=== PATIENT | male | born 1945 | race Caucasian/White ===

== ENCOUNTER 2019-11-05 12:31 | Inpatient (IN) | payer MEDICARE, BC ==
[2019-11-05] MEDS ORDERED: Enoxaparin 40 MG/0.4 ML Syringe SUBCUT SCH (13:14)
[2019-11-05] MEDS ORDERED: Acetaminophen/oxyCODONE 325-5 MG Tab PO PRN (13:14)
[2019-11-05] MEDS ORDERED: Acetaminophen 325 MG Tab PO PRN (13:14)
[2019-11-05] MEDS ORDERED: Warfarin 5 MG Tab PO SCH (14:00)
[2019-11-05 14:16] LABS: ANION GAP 15.4
[2019-11-05] MEDS ORDERED: Warfarin 5 MG Tab PO ONE (15:00)
[2019-11-05] MEDS: Doxycycline 100 MG Cap PO SCH ×2 (15:28→20:52)
[2019-11-05] MEDS ORDERED: Enoxaparin 100 MG/1 ML Syringe SUBCUT ONE (15:45)
[2019-11-05] MEDS: Insulin Lispro 100 Units/ML 3 ML Vial SUBCUT SCH (17:16)
[2019-11-05] MEDS: Insulin Glarg,Human.Rec.Analog 100 Unit/ML SUBCUT SCH (20:49)
[2019-11-05] MEDS: Doxazosin 2 MG Tab PO SCH (20:50)
[2019-11-05] MEDS: Docusate Sodium 100 MG Cap PO PRN (20:51)
[2019-11-05] MEDS: Metoprolol Tartrate 25 MG Tab PO SCH (20:52)
[2019-11-05] MEDS: atorvaSTATin 10 MG Tab PO SCH (20:52)
[2019-11-05] MEDS ORDERED: Non-Formulary Medication 1 Each (Lovastatin [Lovastatin] 40 MG) PO SCH (21:00)
[2019-11-06] MEDS: Omeprazole 20 MG Cap.CR PO SCH (05:42)
[2019-11-06] MEDS: Enoxaparin 100 MG/1 ML Syringe SUBCUT SCH ×2 (05:43→17:29)
--- NOTE | 2019-11-06 08:55 | PN ---
DATE: 11/06/2019 SUBJECTIVE: The patient had a good night sleep. The right leg swelling is slowly improving and the patient denies any chest pain, shortness of breath, abdominal pain, or any bleeding tendencies. LABORATORY DATA: Lab workup this morning: CBC; WBC is 6.2, hemoglobin is 11, hematocrit is 34.2, platelets 216. ProTime is 10.2, INR is 1. Chem-6 remarkable for BUN of 33, creatinine of 1.7. The rest of the panel unremarkable. OBJECTIVE: Vital Signs: Blood pressure is 149/73, pulse 67, respirations of 16, temperature of 100. Heart: Regular rate and rhythm. Normal S1 and S2. No gallops. No rubs. Lungs: Clear. No crackles. No wheezing. Abdomen: Moderately obese, soft, nontender. Extremities: Remarkable for some swelling on the right lower leg (improving), and there is the wound on the medial aspect of the right lower leg. PLAN: We will continue with his current regimen and continue with Lovenox and Coumadin and doxycycline. [facility] /[id number]
[2019-11-06] MEDS: Diltiazem 120 MG Cap.CD PO SCH (08:58)
[2019-11-06] MEDS: Metoprolol Tartrate 25 MG Tab PO SCH ×2 (08:59→21:05)
[2019-11-06] MEDS: Multivitamins,Therapeutic Tab PO SCH (08:59)
[2019-11-06] MEDS: Diltiazem 180 MG Cap.CD PO SCH (08:59)
[2019-11-06] MEDS: Aspirin 81 MG Tab.Chew PO SCH (09:00)
[2019-11-06] MEDS: Lisinopril 5 MG Tab PO SCH (09:00)
[2019-11-06] MEDS: Bumetanide 1 MG Tab PO SCH (09:00)
[2019-11-06] MEDS: Doxycycline 100 MG Cap PO SCH ×2 (09:00→21:04)
[2019-11-06] MEDS ORDERED: methylPREDNISolone Sodium Succinate 40 MG/1 ML SDV IVPUSH SCH (09:00)
[2019-11-06] MEDS: Insulin Lispro 100 Units/ML 3 ML Vial SUBCUT SCH ×3 (09:24→17:25)
[2019-11-06] MEDS ORDERED: Warfarin 5 MG Tab PO ONE (14:00)
[2019-11-06] MEDS: Insulin Glarg,Human.Rec.Analog 100 Unit/ML SUBCUT SCH (21:02)
[2019-11-06] MEDS: atorvaSTATin 10 MG Tab PO SCH (21:04)
[2019-11-06] MEDS: Doxazosin 2 MG Tab PO SCH (21:04)
[2019-11-06] MEDS: Docusate Sodium 100 MG Cap PO PRN (21:05)
[2019-11-07] MEDS: Enoxaparin 100 MG/1 ML Syringe SUBCUT SCH ×2 (05:43→17:51)
[2019-11-07] MEDS: Omeprazole 20 MG Cap.CR PO SCH (05:43)
[2019-11-07] MEDS: Aspirin 81 MG Tab.Chew PO SCH (08:21)
[2019-11-07] MEDS: Diltiazem 120 MG Cap.CD PO SCH (08:22)
[2019-11-07] MEDS: Bumetanide 1 MG Tab PO SCH (08:22)
[2019-11-07] MEDS: Doxycycline 100 MG Cap PO SCH ×2 (08:24→21:55)
[2019-11-07] MEDS: Multivitamins,Therapeutic Tab PO SCH (08:24)
[2019-11-07] MEDS: Diltiazem 180 MG Cap.CD PO SCH (08:24)
[2019-11-07] MEDS: Lisinopril 5 MG Tab PO SCH (08:25)
[2019-11-07] MEDS: Metoprolol Tartrate 25 MG Tab PO SCH ×2 (08:26→22:02)
[2019-11-07] MEDS: Insulin Lispro 100 Units/ML 3 ML Vial SUBCUT SCH ×3 (08:28→17:50)
--- NOTE | 2019-11-07 10:53 | HP ---
CHIEF COMPLAINT: Right leg swelling. HISTORY OF PRESENT ILLNESS: The patient is a 74-year-old gentleman who was admitted from [facility] because of right leg swelling that started actually when he woke up this morning, and he was seen by Dr. Benavides. He had an ultrasound of the right leg, which showed obstructive thrombus on the right common femoral vein and the popliteal vein, and he was then admitted for further evaluation and management and anticoagulation. The patient denies any chest pain, shortness of breath, fever, chills, abdominal pain, melena, hematochezia, or any bleeding tendencies. He mentioned he was just recently seen at the [facility] in [facility] yesterday and had a checkup with his operative site and was also seen by Cardiology. PAST MEDICAL HISTORY: Remarkable for coronary artery bypass graft about 5 weeks ago. He has also type 2 diabetes mellitus, history of gastroesophageal reflux, dyslipidemia, chronic kidney disease, BPH, and hypertension. SOCIAL HISTORY: The patient is a nonsmoker, very occasional beer drinker. FAMILY HISTORY: Noncontributory. REVIEW OF SYSTEMS: As in HPI. The rest of the review of systems is negative. CURRENT MEDICATIONS: Lipitor, lisinopril, Bumex, metoprolol, omeprazole, diltiazem, doxazosin, NovoLog, Levemir, metformin, aspirin, and doxycycline that was just started today. ALLERGIES: No known drug allergies. PHYSICAL EXAMINATION: General: The patient is very pleasant. He is alert and oriented, ambulatory, not in any acute distress. Vital Signs: Blood pressure is 136/70, pulse of 68, respirations 16, weight is 203 pounds, temperature of 97.9. SHEENT: Normocephalic. There are pink palpebral conjunctivae. Sclerae anicteric. No JVD. No lymphadenopathy. Heart: Regular rate and rhythm. Normal S1 and S2. No gallops. No rubs. Lungs: Equal bilaterally. No crackles. No wheezing. Abdomen: Moderately obese, soft, nontender. Bowel sounds positive. Extremities: Remarkable for the swelling on the right leg and there is about 1 inch open wound on the medial aspect of the right lower leg (graft harvest site). IMAGING: Ultrasound of the right leg showed an obstructive thrombus of the right common femoral vein and popliteal vein. IMPRESSION: 1. Acute deep venous thrombosis of the right leg. 2. Wound on the graft harvest site on the right lower leg. 3. History of coronary artery bypass graft. 4. Coronary artery disease. 5. Type 2 diabetes mellitus. 6. Hypertension. 7. BPH. 8. Chronic kidney disease. TREATMENT PLAN: The patient is going to be admitted to General Medicine for acute care. He will be started on Lovenox and Coumadin at the same time, and we will also continue with his doxycycline for the wound on the harvest site of the graft, and we will continue with the rest of his home medication and the rest of the management as necessary and the patient is a full code. [facility] /[id number]
--- NOTE | 2019-11-07 11:25 | PCM.PN ---
- General Info Date of Service: 11/07/19 Admission Dx/Problem (Free Text): Admitted with: DVT of the Right lower extremity Subjective Update: Pt was seen in room doing well, feels better, no siginificant leg pain or swelling. Appetite is good but had no BM for the last 3 days Functional Status: Reports: Pain Controlled, Tolerating Diet, Ambulating, Urinating - Review of Systems General: Reports: Appetite (acceptable). Denies: Fever, Chills HEENT: Denies: Sinus Congestion, Sore Throat, Rhinitis, Visual Changes Pulmonary: Denies: Shortness of Breath, Cough, Sputum, Wheezing Cardiovascular: Denies: Chest Pain, Dyspnea on Exertion, Lightheadedness Gastrointestinal: Reports: Constipation. Denies: Abdominal Pain, Difficulty Swallowing, Nausea, Vomiting Genitourinary: Denies: Dysuria, Burning, Urgency, Flank Pain Musculoskeletal: Reports: Leg Pain. Denies: Shoulder Pain, Joint Swelling Skin: Denies: Cyanosis, Jaundice, Bruising, Pruritis, Rash Neurological: Denies: Confusion, Dizziness, Headache, Numbness, Paresthesia Psychiatric: Denies: Confusion, Anxiety - Patient Data Vitals - Most Recent: Last Vital Signs Temp 36.8 C 11/07/19 07:53 Pulse 62 11/07/19 08:26 Resp 20 11/07/19 07:53 BP 131/69 11/07/19 08:26 Pulse Ox 98 11/07/19 07:53 Weight - Most Recent: 91.172 kg I&O - Last 24 Hours: Intake & Output 11/06/19 11/07/19 11/07/19 22:59 06:59 14:59 Intake Total 300 510 360 Balance 300 510 360 Lab Results Last 24 Hours: Laboratory Results - last 24 hr 11/06/19 11/06/19 11/06/19 Range/Units 11:55 16:36 20:58 PT (9.0-12.0) SEC INR (0.9-1.2) POC Glucose 185 H 162 H 144 H (83-110) mg/dl 11/07/19 11/07/19 11/07/19 Range/Units 06:00 07:44 11:07 PT 10.4 (9.0-12.0) SEC INR 1.0 (0.9-1.2) POC Glucose 76 L 262 H (83-110) mg/dl Med Orders - Current: Current Medications Acetaminophen (Tylenol) 650 mg PO Q4H PRN PRN Reason: Pain (Mild 1-3)/fever Aspirin (Aspirin) 81 mg PO WITHBREAKFAST [facility] Last Admin: 11/07/19 08:21 Dose: 81 mg Atorvastatin Calcium (Lipitor) 10 mg PO BEDTIME [facility] Last Admin: 11/06/19 21:04 Dose: 10 mg Bumetanide (Bumex) 1 mg PO DAILY [facility] Last Admin: 11/07/19 08:22 Dose: 1 mg Diltiazem HCl (Cardizem Cd) 120 mg PO DAILY [facility] Last Admin: 11/07/19 08:22 Dose: 120 mg Diltiazem HCl (Cardizem Cd) 180 mg PO DAILY [facility] Last Admin: 11/07/19 08:24 Dose: 180 mg Docusate Sodium (Colace) 100 mg PO BID PRN PRN Reason: Constipation Last Admin: 11/06/19 21:05 Dose: 100 mg Doxazosin Mesylate (Cardura) 2 mg PO BEDTIME [facility] Last Admin: 11/06/19 21:04 Dose: 2 mg Doxycycline Hyclate (Vibramycin) 100 mg PO BID [facility] Last Admin: 11/07/19 08:24 Dose: 100 mg Enoxaparin Sodium (Lovenox) 90 mg SUBCUT Q12H [facility] Last Admin: 11/07/19 05:43 Dose: 90 mg Insulin Glargine (Lantus) 30 unit SUBCUT BEDTIME [facility] Last Admin: 11/06/19 21:02 Dose: 30 units Insulin Human Lispro (Humalog) 15 unit SUBCUT BIDMEALS [facility] Lisinopril (Prinivil) 2.5 mg PO DAILY [facility] Last Admin: 11/07/19 08:25 Dose: 2.5 mg Metoprolol Tartrate (Lopressor) 12.5 mg PO BID [facility] Last Admin: 11/07/19 08:26 Dose: 12.5 mg Multivitamins (Thera) 1 each PO DAILY [facility] Last Admin: 11/07/19 08:24 Dose: 1 each Omeprazole (Omeprazole) 20 mg PO ACBREAKFAST [facility] Last Admin: 11/07/19 05:43 Dose: 20 mg Oxycodone/Acetaminophen (Percocet 325-5 Mg) 1 tab PO Q4H PRN PRN Reason: Pain (moderate 4-6) Sodium Chloride (Saline Flush) 10 ml FLUSH ASDIRECTED PRN PRN Reason: Keep Vein Open Warfarin Sodium (Pharmacy To Dose - Warfarin) 1 dose PO ASDIRECTED TRICE Warfarin Sodium (Coumadin) 7.5 mg PO ONETIME ONE Stop: 11/07/19 14:01 Discontinued Medications Enoxaparin Sodium (Lovenox) 100 mg SUBCUT DAILY [facility] Last Admin: 11/05/19 15:29 Dose: Not Given Enoxaparin Sodium (Lovenox) 90 mg SUBCUT ONETIME ONE Stop: 11/05/19 15:46 Last Admin: 11/05/19 16:01 Dose: 90 mg Insulin Human Lispro (Humalog) 15 unit SUBCUT TIDMEALS [facility] Last Admin: 11/07/19 08:28 Dose: Not Given Non-Formulary Medication (Lovastatin [Lovastatin]) 40 mg PO BEDTIME [facility] Warfarin Sodium (Coumadin) 5 mg PO DAILY@1400 [facility] Last Admin: 11/05/19 15:29 Dose: Not Given Warfarin Sodium (Coumadin) 5 mg PO ONETIME ONE Stop: 11/05/19 15:01 Last Admin: 11/05/19 15:28 Dose: 5 mg Warfarin Sodium (Coumadin) 5 mg PO ONETIME ONE Stop: 11/06/19 14:01 Last Admin: 11/06/19 13:41 Dose: 5 mg - Exam Quality Assessment: DVT Prophylaxis. No: Supplemental Oxygen, Urine Catheter General: Alert, Oriented, Cooperative, No Acute Distress HEENT: Pupils Equal, EOMI, Mucous Membr. Moist/[place] Neck: No: No JVD, No Thyromegaly, Lymphadenopathy Lungs: Clear to Auscultation, Normal Respiratory Effort. No: Wheezing Cardiovascular: Regular Rate, Regular Rhythm, No Murmurs GI/Abdominal Exam: Normal Bowel Sounds, Soft, Non-Tender. No: Guarding, Rigid, Rebound Back Exam: Normal Inspection, Full Range of Motion Extremities: Normal Inspection, No Pedal Edema Skin: Warm, Dry, Intact Neurological: No New Focal Deficit Psy/Mental Status: Alert, Normal Affect Sepsis Event Note - Evaluation Sepsis Screening Result: No Definite Risk - Focused Exam Vital Signs: Vital Signs Temp Pulse Pulse Resp BP BP Pulse Ox 11/07/19 08:26 62 131/69 11/07/19 08:25 131/69 11/07/19 08:22 62 131/69 11/07/19 07:53 36.8 C 62 20 131/69 98 Date Exam was Performed: 11/07/19 Time Exam was Performed: 11:20 - Problem List & Annotations (1) DVT (deep venous thrombosis) SNOMED Code(s): 483636756 Code(s): I82.409 - ACUTE EMBOLISM AND THOMBOS UNSP DEEP VN UNSP LOWER EXTREMITY Status: Acute Current Visit: Yes - Problem List Review Problem List Initiated/Reviewed/Updated: Yes - My Orders Last 24 Hours: My Active Orders 11/07/19 18:00 Insulin Lispro [HumaLOG] 15 unit SUBCUT BIDMEALS - Plan Plan:: This is a 74 y/O pleasant Male with past medical history of CAD S/P CABG about 5 weeks ago, Diabetes II, Hypertension GERD Dyslipidemia, CKD was admitted from [facility] [place] with Rt Leg swelling, work up showed Rt LE DVT 1. Right Leg DVT: He is on Lovenox and Coumadin -Pharmacy is dosing the Coumadin dose and it is not yet therapeutic -Will D/C once he is on Therapeutic target 2. Diabetes II ( Insulin Dependent): Continue Lantus and sliding scale coverage. He is also on regular insulin before meals. His blood sugaer is acceptable 3. Hypertension: BP is controlled, will continue Diltiazem at 300 mg daily and Metoprolol at 12.5 mg bID and Lisinopril at 2.5 mg daily 4. Rt LE wound ( graft harvest site) : He is on Doxycycline 5. GERD: he is on Protonix 6. Code Status: Full Code
[2019-11-07] MEDS ORDERED: Warfarin 2.5 MG Tab PO ONE (14:00)
[2019-11-07] MEDS: Insulin Glarg,Human.Rec.Analog 100 Unit/ML SUBCUT SCH (21:44)
[2019-11-07] MEDS: Sodium Chloride 0.9% 10 ML Syringe FLUSH PRN (21:50)
[2019-11-07] MEDS: Doxazosin 2 MG Tab PO SCH (21:55)
[2019-11-07] MEDS: atorvaSTATin 10 MG Tab PO SCH (21:59)
[2019-11-07] MEDS: Docusate Sodium 100 MG Cap PO PRN (22:11)
[2019-11-08] MEDS: Omeprazole 20 MG Cap.CR PO SCH (06:33)
[2019-11-08] MEDS: Enoxaparin 100 MG/1 ML Syringe SUBCUT SCH ×2 (06:34→17:35)
[2019-11-08] MEDS: Bumetanide 1 MG Tab PO SCH (08:29)
[2019-11-08] MEDS: Aspirin 81 MG Tab.Chew PO SCH (08:29)
[2019-11-08] MEDS: Diltiazem 180 MG Cap.CD PO SCH (08:30)
[2019-11-08] MEDS: Diltiazem 120 MG Cap.CD PO SCH (08:30)
[2019-11-08] MEDS: Multivitamins,Therapeutic Tab PO SCH (08:31)
[2019-11-08] MEDS: Doxycycline 100 MG Cap PO SCH ×2 (08:31→20:23)
[2019-11-08] MEDS: Metoprolol Tartrate 25 MG Tab PO SCH ×2 (08:32→20:22)
[2019-11-08] MEDS: Lisinopril 5 MG Tab PO SCH (08:33)
[2019-11-08] MEDS: Insulin Lispro 100 Units/ML 3 ML Vial SUBCUT SCH ×2 (08:47→17:35)
--- NOTE | 2019-11-08 11:32 | PCM.PN ---
- General Info Date of Service: 11/08/19 Admission Dx/Problem (Free Text): Admitted with: DVT of the Right lower extremity Subjective Update: Pt was seen in room doing well, feels better, no siginificant leg pain or swelling. Appetite is good Functional Status: Reports: Pain Controlled, Tolerating Diet, Ambulating, Urinating - Review of Systems General: Reports: Appetite (good). Denies: Fever, Weakness, Chills HEENT: Denies: Headaches, Sinus Congestion, Sore Throat, Visual Changes Pulmonary: Denies: Shortness of Breath, Cough, Sputum, Wheezing Cardiovascular: Denies: Chest Pain, Dyspnea on Exertion, Edema Gastrointestinal: Denies: Abdominal Pain, Diarrhea, Difficulty Swallowing, Nausea, Vomiting Genitourinary: Denies: Dysuria, Frequency, Burning, Urgency, Flank Pain Musculoskeletal: Denies: Neck Pain, Foot Pain, Joint Pain Skin: Denies: Cyanosis, Jaundice, Bruising, Pruritis, Rash Neurological: Denies: Confusion, Tingling, Tremors Psychiatric: Denies: Confusion, Anxiety - Patient Data Vitals - Most Recent: Last Vital Signs Temp 37.2 C 11/08/19 08:00 Pulse 64 11/08/19 08:32 Resp 20 11/08/19 08:00 BP 132/63 11/08/19 08:33 Pulse Ox 98 11/08/19 08:00 Weight - Most Recent: 89.176 kg I&O - Last 24 Hours: Intake & Output 11/07/19 11/08/19 11/08/19 22:59 06:59 14:59 Intake Total 118 1150 Balance 118 1150 Lab Results Last 24 Hours: Laboratory Results - last 24 hr 11/07/19 11/07/19 11/08/19 Range/Units 16:47 20:43 05:40 PT 10.8 (9.0-12.0) SEC INR 1.1 (0.9-1.2) POC Glucose 166 H 152 H (83-110) mg/dl 11/08/19 11/08/19 Range/Units 07:48 11:10 PT (9.0-12.0) SEC INR (0.9-1.2) POC Glucose 99 137 H (83-110) mg/dl Med Orders - Current: Current Medications Acetaminophen (Tylenol) 650 mg PO Q4H PRN PRN Reason: Pain (Mild 1-3)/fever Aspirin (Aspirin) 81 mg PO WITHBREAKFAST [facility] Last Admin: 11/08/19 08:29 Dose: 81 mg Atorvastatin Calcium (Lipitor) 10 mg PO BEDTIME [facility] Last Admin: 11/07/19 21:59 Dose: 10 mg Bumetanide (Bumex) 1 mg PO DAILY [facility] Last Admin: 11/08/19 08:29 Dose: 1 mg Diltiazem HCl (Cardizem Cd) 120 mg PO DAILY [facility] Last Admin: 11/08/19 08:30 Dose: 120 mg Diltiazem HCl (Cardizem Cd) 180 mg PO DAILY [facility] Last Admin: 11/08/19 08:30 Dose: 180 mg Docusate Sodium (Colace) 100 mg PO BID PRN PRN Reason: Constipation Last Admin: 11/07/19 22:11 Dose: 100 mg Doxazosin Mesylate (Cardura) 2 mg PO BEDTIME [facility] Last Admin: 11/07/19 21:55 Dose: 2 mg Doxycycline Hyclate (Vibramycin) 100 mg PO BID [facility] Last Admin: 11/08/19 08:31 Dose: 100 mg Enoxaparin Sodium (Lovenox) 90 mg SUBCUT Q12H [facility] Last Admin: 11/08/19 06:34 Dose: 90 mg Insulin Glargine (Lantus) 30 unit SUBCUT BEDTIME [facility] Last Admin: 11/07/19 21:44 Dose: 30 units Insulin Human Lispro (Humalog) 15 unit SUBCUT BIDMEALS [facility] Last Admin: 11/08/19 08:47 Dose: 15 units Lisinopril (Prinivil) 2.5 mg PO DAILY [facility] Last Admin: 11/08/19 08:33 Dose: 2.5 mg Metoprolol Tartrate (Lopressor) 12.5 mg PO BID [facility] Last Admin: 11/08/19 08:32 Dose: 12.5 mg Multivitamins (Thera) 1 each PO DAILY [facility] Last Admin: 11/08/19 08:31 Dose: 1 each Omeprazole (Omeprazole) 20 mg PO ACBREAKFAST [facility] Last Admin: 11/08/19 06:33 Dose: 20 mg Oxycodone/Acetaminophen (Percocet 325-5 Mg) 1 tab PO Q4H PRN PRN Reason: Pain (moderate 4-6) Sodium Chloride (Saline Flush) 10 ml FLUSH ASDIRECTED PRN PRN Reason: Keep Vein Open Last Admin: 11/07/19 21:50 Dose: 10 ml Warfarin Sodium (Pharmacy To Dose - Warfarin) 1 dose PO ASDIRECTED [facility] Warfarin Sodium (Coumadin) 7.5 mg PO ONETIME ONE Stop: 11/08/19 14:01 Discontinued Medications Enoxaparin Sodium (Lovenox) 100 mg SUBCUT DAILY [facility] Last Admin: 11/05/19 15:29 Dose: Not Given Enoxaparin Sodium (Lovenox) 90 mg SUBCUT ONETIME ONE Stop: 11/05/19 15:46 Last Admin: 11/05/19 16:01 Dose: 90 mg Insulin Human Lispro (Humalog) 15 unit SUBCUT TIDMEALS [facility] Last Admin: 11/07/19 08:28 Dose: Not Given Non-Formulary Medication (Lovastatin [Lovastatin]) 40 mg PO BEDTIME [facility] Warfarin Sodium (Coumadin) 5 mg PO DAILY@1400 [facility] Last Admin: 11/05/19 15:29 Dose: Not Given Warfarin Sodium (Coumadin) 5 mg PO ONETIME ONE Stop: 11/05/19 15:01 Last Admin: 11/05/19 15:28 Dose: 5 mg Warfarin Sodium (Coumadin) 5 mg PO ONETIME ONE Stop: 11/06/19 14:01 Last Admin: 11/06/19 13:41 Dose: 5 mg Warfarin Sodium (Coumadin) 7.5 mg PO ONETIME ONE Stop: 11/07/19 14:01 Last Admin: 11/07/19 14:12 Dose: 7.5 mg - Exam Quality Assessment: DVT Prophylaxis. No: Supplemental Oxygen, Urine Catheter General: No: Alert, Oriented, Cooperative, No Acute Distress HEENT: Pupils Equal, EOMI, Mucous Membr. Moist/[place] Neck: No JVD, No Thyromegaly Lungs: Clear to Auscultation, Normal Respiratory Effort. No: Crackles, Wheezing Cardiovascular: Regular Rate, Regular Rhythm, Murmurs GI/Abdominal Exam: Normal Bowel Sounds, Soft, Non-Tender, No Organomegaly (Male) Exam: Deferred Back Exam: Normal Inspection, Full Range of Motion Extremities: Normal Inspection, No Pedal Edema Skin: Warm, Dry, Intact Neurological: No New Focal Deficit Psy/Mental Status: Alert, Normal Affect, Normal Mood Sepsis Event Note - Evaluation Sepsis Screening Result: No Definite Risk - Focused Exam Vital Signs: Vital Signs Temp Pulse Pulse Resp BP BP Pulse Ox 11/08/19 08:33 132/63 11/08/19 08:32 64 132/63 11/08/19 08:30 64 132/63 11/08/19 08:00 37.2 C 64 20 132/63 98 Date Exam was Performed: 11/08/19 Time Exam was Performed: 11:27 - Problem List & Annotations (1) DVT (deep venous thrombosis) SNOMED Code(s): 608381390 Code(s): I82.409 - ACUTE EMBOLISM AND THOMBOS UNSP DEEP VN UNSP LOWER EXTREMITY Status: Acute Current Visit: Yes - Problem List Review Problem List Initiated/Reviewed/Updated: Yes - My Orders Last 24 Hours: My Active Orders 11/07/19 18:00 Insulin Lispro [HumaLOG] 15 unit SUBCUT BIDMEALS 11/07/19 18:19 IS (RT) [RT Incentive Spirometry] [RC] ASDIRECTED 11/08/19 14:00 Warfarin [Coumadin] 7.5 mg PO ONETIME ONE - Plan Plan:: This is a 74 y/O pleasant Male with past medical history of CAD S/P CABG about 5 weeks ago, Diabetes II, Hypertension GERD Dyslipidemia, CKD was admitted from [facility] [place] with Rt Leg swelling, work up showed Rt LE DVT 1. Right Leg DVT: He is on Lovenox and Coumadin -Pharmacy is dosing the Coumadin dose and it is not yet therapeutic -Will D/C once INR is on Therapeutic target 2. Diabetes II ( Insulin Dependent): Continue Lantus and sliding scale coverage. He is also on regular insulin before meals. His blood sugar is acceptable 3. Hypertension: BP is controlled, will continue Diltiazem at 300 mg daily and Metoprolol at 12.5 mg bID and Lisinopril at 2.5 mg daily 4. Rt LE wound ( graft harvest site) : He is on Doxycycline 5. GERD: he is on Protonix 6. Code Status: Full Code
[2019-11-08] MEDS ORDERED: Warfarin 2.5 MG Tab PO ONE (14:00)
[2019-11-08] MEDS: atorvaSTATin 10 MG Tab PO SCH (20:23)
[2019-11-08] MEDS: Doxazosin 2 MG Tab PO SCH (20:24)
[2019-11-08] MEDS: Insulin Glarg,Human.Rec.Analog 100 Unit/ML SUBCUT SCH (21:07)
[2019-11-09] MEDS: Omeprazole 20 MG Cap.CR PO SCH (06:34)
[2019-11-09] MEDS: Enoxaparin 100 MG/1 ML Syringe SUBCUT SCH ×2 (06:35→17:50)
[2019-11-09] MEDS: Diltiazem 120 MG Cap.CD PO SCH (08:27)
[2019-11-09] MEDS: Aspirin 81 MG Tab.Chew PO SCH (08:27)
[2019-11-09] MEDS: Bumetanide 1 MG Tab PO SCH (08:29)
[2019-11-09] MEDS: Diltiazem 180 MG Cap.CD PO SCH (08:29)
[2019-11-09] MEDS: Multivitamins,Therapeutic Tab PO SCH (08:30)
[2019-11-09] MEDS: Doxycycline 100 MG Cap PO SCH ×2 (08:30→20:24)
[2019-11-09] MEDS: Lisinopril 5 MG Tab PO SCH (08:31)
[2019-11-09] MEDS: Metoprolol Tartrate 25 MG Tab PO SCH ×2 (08:31→20:25)
[2019-11-09] MEDS: Insulin Lispro 100 Units/ML 3 ML Vial SUBCUT SCH ×2 (08:33→17:50)
[2019-11-09] MEDS: Sodium Chloride 0.9% 10 ML Syringe FLUSH PRN (08:37)
--- NOTE | 2019-11-09 11:19 | PCM.PN ---
- General Info Date of Service: 11/09/19 Admission Dx/Problem (Free Text): Admitted with: DVT of the Right lower extremity Subjective Update: Pt was seen in room doing well, feels better, no siginificant leg pain or swelling. Appetite is good, but had no BM Since admission Functional Status: Reports: Pain Controlled, Tolerating Diet, Ambulating, Urinating - Review of Systems General: Reports: Appetite (good). Denies: Fever, Weakness, Chills HEENT: Denies: Headaches, Sinus Congestion, Sore Throat, Visual Changes Pulmonary: Denies: Shortness of Breath, Pleuritic Chest Pain, Cough, Sputum, Wheezing Cardiovascular: Denies: Chest Pain, Dyspnea on Exertion, Edema, Lightheadedness Gastrointestinal: Reports: Constipation. Denies: Difficulty Swallowing, Nausea , Vomiting Genitourinary: Denies: Dysuria, Burning, Flank Pain Musculoskeletal: Denies: Neck Pain, Shoulder Pain, Leg Pain, Joint Pain Skin: Denies: Cyanosis, Jaundice, Bruising, Rash Neurological: Denies: Confusion, Numbness, Tingling, Tremors Psychiatric: Denies: Confusion, Anxiety - Patient Data Vitals - Most Recent: Last Vital Signs Temp 37.4 C 11/09/19 08:00 Pulse 64 11/09/19 08:31 Resp 20 11/09/19 08:00 BP 126/66 11/09/19 08:31 Pulse Ox 96 11/09/19 08:00 Weight - Most Recent: 80.739 kg Lab Results Last 24 Hours: Laboratory Results - last 24 hr 11/08/19 11/08/19 11/09/19 Range/Units 16:41 21:02 06:15 PT 12.5 H (9.0-12.0) SEC INR 1.2 (0.9-1.2) POC Glucose 205 H 178 H (83-110) mg/dl 11/09/19 Range/Units 07:53 PT (9.0-12.0) SEC INR (0.9-1.2) POC Glucose 113 H (83-110) mg/dl Med Orders - Current: Current Medications Acetaminophen (Tylenol) 650 mg PO Q4H PRN PRN Reason: Pain (Mild 1-3)/fever Aspirin (Aspirin) 81 mg PO WITHBREAKFAST [facility] Last Admin: 11/09/19 08:27 Dose: 81 mg Atorvastatin Calcium (Lipitor) 10 mg PO BEDTIME [facility] Last Admin: 11/08/19 20:23 Dose: 10 mg Bumetanide (Bumex) 1 mg PO DAILY [facility] Last Admin: 11/09/19 08:29 Dose: 1 mg Diltiazem HCl (Cardizem Cd) 120 mg PO DAILY [facility] Last Admin: 11/09/19 08:27 Dose: 120 mg Diltiazem HCl (Cardizem Cd) 180 mg PO DAILY [facility] Last Admin: 11/09/19 08:29 Dose: 180 mg Docusate Sodium (Colace) 100 mg PO BID PRN PRN Reason: Constipation Last Admin: 11/07/19 22:11 Dose: 100 mg Doxazosin Mesylate (Cardura) 2 mg PO BEDTIME [facility] Last Admin: 11/08/19 20:24 Dose: 2 mg Doxycycline Hyclate (Vibramycin) 100 mg PO BID [facility] Last Admin: 11/09/19 08:30 Dose: 100 mg Enoxaparin Sodium (Lovenox) 90 mg SUBCUT Q12H [facility] Last Admin: 11/09/19 06:35 Dose: 90 mg Insulin Glargine (Lantus) 30 unit SUBCUT BEDTIME [facility] Last Admin: 11/08/19 21:07 Dose: 30 units Insulin Human Lispro (Humalog) 15 unit SUBCUT BIDMEALS [facility] Last Admin: 11/09/19 08:33 Dose: 15 units Lisinopril (Prinivil) 2.5 mg PO DAILY [facility] Last Admin: 11/09/19 08:31 Dose: 2.5 mg Magnesium Hydroxide (Milk Of Magnesia) 30 ml PO DAILY PRN PRN Reason: Constipation Metoprolol Tartrate (Lopressor) 12.5 mg PO BID [facility] Last Admin: 11/09/19 08:31 Dose: 12.5 mg Multivitamins (Thera) 1 each PO DAILY [facility] Last Admin: 11/09/19 08:30 Dose: 1 each Omeprazole (Omeprazole) 20 mg PO ACBREAKFAST [facility] Last Admin: 11/09/19 06:34 Dose: 20 mg Oxycodone/Acetaminophen (Percocet 325-5 Mg) 1 tab PO Q4H PRN PRN Reason: Pain (moderate 4-6) Polyethylene Glycol (Miralax) 17 gm PO DAILY [facility] Sodium Chloride (Saline Flush) 10 ml FLUSH ASDIRECTED PRN PRN Reason: Keep Vein Open Last Admin: 11/09/19 08:37 Dose: 10 ml Warfarin Sodium (Pharmacy To Dose - Warfarin) 1 dose PO ASDIRECTED [facility] Warfarin Sodium (Coumadin) 7.5 mg PO ONETIME ONE Stop: 11/09/19 14:01 Discontinued Medications Enoxaparin Sodium (Lovenox) 100 mg SUBCUT DAILY [facility] Last Admin: 11/05/19 15:29 Dose: Not Given Enoxaparin Sodium (Lovenox) 90 mg SUBCUT ONETIME ONE Stop: 11/05/19 15:46 Last Admin: 11/05/19 16:01 Dose: 90 mg Insulin Human Lispro (Humalog) 15 unit SUBCUT TIDMEALS [facility] Last Admin: 11/07/19 08:28 Dose: Not Given Non-Formulary Medication (Lovastatin [Lovastatin]) 40 mg PO BEDTIME [facility] Warfarin Sodium (Coumadin) 5 mg PO DAILY@1400 [facility] Last Admin: 11/05/19 15:29 Dose: Not Given Warfarin Sodium (Coumadin) 5 mg PO ONETIME ONE Stop: 11/05/19 15:01 Last Admin: 11/05/19 15:28 Dose: 5 mg Warfarin Sodium (Coumadin) 5 mg PO ONETIME ONE Stop: 11/06/19 14:01 Last Admin: 11/06/19 13:41 Dose: 5 mg Warfarin Sodium (Coumadin) 7.5 mg PO ONETIME ONE Stop: 11/07/19 14:01 Last Admin: 11/07/19 14:12 Dose: 7.5 mg Warfarin Sodium (Coumadin) 7.5 mg PO ONETIME ONE Stop: 11/08/19 14:01 Last Admin: 11/08/19 14:48 Dose: 7.5 mg - Exam Quality Assessment: DVT Prophylaxis. No: Supplemental Oxygen, Central Line/PICC , Urine Catheter General: Alert, Oriented, Cooperative, No Acute Distress HEENT: Pupils Equal, EOMI, Mucous Membr. Moist/[place] Neck: No JVD, No Thyromegaly. No: Lymphadenopathy Lungs: Clear to Auscultation, Normal Respiratory Effort. No: Crackles, Wheezing Cardiovascular: Regular Rate, Regular Rhythm, Murmurs GI/Abdominal Exam: Normal Bowel Sounds, Soft, Non-Tender, No Distention. No: Rigid, Rebound (Male) Exam: Deferred Back Exam: Normal Inspection, Full Range of Motion Extremities: Normal Inspection, No Pedal Edema Skin: Warm, Dry, Intact Neurological: No New Focal Deficit Psy/Mental Status: Alert, Normal Affect, Normal Mood Sepsis Event Note - Evaluation Sepsis Screening Result: No Definite Risk - Focused Exam Vital Signs: Vital Signs Temp Pulse Pulse Resp BP BP Pulse Ox 11/09/19 08:31 64 126/66 11/09/19 08:27 64 126/66 11/09/19 08:00 37.4 C 58 L 20 126/66 96 Date Exam was Performed: 11/09/19 Time Exam was Performed: 11:15 - Problem List & Annotations (1) DVT (deep venous thrombosis) SNOMED Code(s): 409789133 Code(s): I82.409 - ACUTE EMBOLISM AND THOMBOS UNSP DEEP VN UNSP LOWER EXTREMITY Status: Acute Current Visit: Yes - Problem List Review Problem List Initiated/Reviewed/Updated: Yes - My Orders Last 24 Hours: My Active Orders 11/09/19 09:00 Polyethylene Glycol 3350 [MiraLAX] 17 gm PO DAILY 11/09/19 10:11 Magnesium Hydroxide [Milk of Magnesia] 30 ml PO DAILY PRN 11/09/19 14:00 Warfarin [Coumadin] 7.5 mg PO ONETIME ONE - Plan Plan:: This is a 74 y/O pleasant Male with past medical history of CAD S/P CABG about 5 weeks ago, Diabetes II, Hypertension GERD Dyslipidemia, CKD was admitted from [facility] [place] with Rt Leg swelling, work up showed Rt LE DVT 1. Right Leg DVT: He is on Lovenox and Coumadin -Pharmacy is dosing the Coumadin dose and it is not yet therapeutic -Will D/C once INR is on Therapeutic target 2. Diabetes II ( Insulin Dependent): Continue Lantus and sliding scale coverage. He is also on regular insulin before meals. His blood sugar is acceptable 3. Hypertension: BP is controlled, will continue Diltiazem at 300 mg daily and Metoprolol at 12.5 mg BID and Lisinopril at 2.5 mg daily 4. Rt LE wound ( graft harvest site) : He is on Doxycycline 5. GERD: Continue Protonix 6. Code Status: Full Code
[2019-11-09] MEDS: Magnesium Hydroxide 400 MG/5 ML Susp 30 ML Cup PO PRN (11:41)
[2019-11-09] MEDS: Polyethylene Glycol 3350 Powder 17 GM Packet PO SCH ×2 (12:12→17:52)
[2019-11-09] MEDS ORDERED: Warfarin 2.5 MG Tab PO ONE (14:00)
[2019-11-09] MEDS: Docusate Sodium 100 MG Cap PO PRN (17:50)
[2019-11-09] MEDS: Doxazosin 2 MG Tab PO SCH (20:24)
[2019-11-09] MEDS: atorvaSTATin 10 MG Tab PO SCH (20:25)
[2019-11-09] MEDS: Insulin Glarg,Human.Rec.Analog 100 Unit/ML SUBCUT SCH (21:33)
[2019-11-10] MEDS: Omeprazole 20 MG Cap.CR PO SCH (06:16)
[2019-11-10] MEDS: Enoxaparin 100 MG/1 ML Syringe SUBCUT SCH ×2 (06:17→17:36)
[2019-11-10] MEDS: Docusate Sodium 100 MG Cap PO PRN (06:24)
[2019-11-10] MEDS: Magnesium Hydroxide 400 MG/5 ML Susp 30 ML Cup PO PRN (06:24)
[2019-11-10] MEDS: Insulin Lispro 100 Units/ML 3 ML Vial SUBCUT SCH ×2 (08:00→17:36)
[2019-11-10] MEDS: Lisinopril 5 MG Tab PO SCH (09:21)
[2019-11-10] MEDS: Multivitamins,Therapeutic Tab PO SCH (09:21)
[2019-11-10] MEDS: Metoprolol Tartrate 25 MG Tab PO SCH ×2 (09:22→21:41)
[2019-11-10] MEDS: Doxycycline 100 MG Cap PO SCH ×2 (09:24→21:37)
[2019-11-10] MEDS: Diltiazem 120 MG Cap.CD PO SCH (09:24)
[2019-11-10] MEDS: Bumetanide 1 MG Tab PO SCH (09:24)
[2019-11-10] MEDS: Aspirin 81 MG Tab.Chew PO SCH (09:26)
[2019-11-10] MEDS: Polyethylene Glycol 3350 Powder 17 GM Packet PO SCH (09:27)
[2019-11-10] MEDS: Diltiazem 180 MG Cap.CD PO SCH (09:28)
--- NOTE | 2019-11-10 10:41 | PCM.PN ---
- General Info Date of Service: 11/10/19 Admission Dx/Problem (Free Text): Admitted with: DVT of the Right lower extremity Subjective Update: Pt was seen in room doing well, feels better, no significant leg pain or swelling. Appetite is good, and had BM Functional Status: Reports: Pain Controlled, Tolerating Diet, Ambulating, Urinating - Review of Systems General: Reports: Appetite (good). Denies: Fever, Weakness, Chills HEENT: Denies: Dysphasia, Headaches, Sinus Congestion, Sore Throat, Visual Changes Pulmonary: Denies: Shortness of Breath, Cough, Sputum, Wheezing Cardiovascular: Denies: Chest Pain, Dyspnea on Exertion, Lightheadedness Gastrointestinal: Denies: Abdominal Pain, Diarrhea, Nausea, Vomiting Genitourinary: Denies: Dysuria, Burning, Urgency, Flank Pain Musculoskeletal: Denies: Neck Pain, Shoulder Pain, Leg Pain, Foot Pain Skin: Denies: Cyanosis, Jaundice, Bruising, Pruritis, Rash Neurological: Denies: Confusion, Headache, Tremors Psychiatric: Reports: No Symptoms - Patient Data Vitals - Most Recent: Last Vital Signs Temp 36.7 C 11/10/19 08:00 Pulse 63 11/10/19 09:24 Resp 18 11/10/19 08:00 BP 132/66 11/10/19 09:24 Pulse Ox 93 L 11/10/19 08:00 Weight - Most Recent: 88.904 kg I&O - Last 24 Hours: Intake & Output 11/09/19 11/10/19 11/10/19 22:59 06:59 14:59 Intake Total 540 Balance 540 Lab Results Last 24 Hours: Laboratory Results - last 24 hr 11/09/19 11/09/19 11/09/19 Range/Units 11:59 17:06 21:05 PT (9.0-12.0) SEC INR (0.9-1.2) POC Glucose 130 H 175 H 227 H (83-110) mg/dl 11/10/19 11/10/19 Range/Units 06:15 07:55 PT 13.4 H (9.0-12.0) SEC INR 1.3 H (0.9-1.2) POC Glucose 82 L (83-110) mg/dl Med Orders - Current: Current Medications Acetaminophen (Tylenol) 650 mg PO Q4H PRN PRN Reason: Pain (Mild 1-3)/fever Aspirin (Aspirin) 81 mg PO WITHBREAKFAST [facility] Last Admin: 11/10/19 09:26 Dose: 81 mg Atorvastatin Calcium (Lipitor) 10 mg PO BEDTIME [facility] Last Admin: 11/09/19 20:25 Dose: 10 mg Bumetanide (Bumex) 1 mg PO DAILY [facility] Last Admin: 11/10/19 09:24 Dose: 1 mg Diltiazem HCl (Cardizem Cd) 120 mg PO DAILY [facility] Last Admin: 11/10/19 09:24 Dose: 120 mg Diltiazem HCl (Cardizem Cd) 180 mg PO DAILY [facility] Last Admin: 11/10/19 09:28 Dose: 180 mg Docusate Sodium (Colace) 100 mg PO BID PRN PRN Reason: Constipation Last Admin: 11/10/19 06:24 Dose: 100 mg Doxazosin Mesylate (Cardura) 2 mg PO BEDTIME [facility] Last Admin: 11/09/19 20:24 Dose: 2 mg Doxycycline Hyclate (Vibramycin) 100 mg PO BID [facility] Last Admin: 11/10/19 09:24 Dose: 100 mg Enoxaparin Sodium (Lovenox) 90 mg SUBCUT Q12H [facility] Last Admin: 11/10/19 06:17 Dose: 90 mg Insulin Glargine (Lantus) 30 unit SUBCUT BEDTIME [facility] Last Admin: 11/09/19 21:33 Dose: 30 units Insulin Human Lispro (Humalog) 15 unit SUBCUT BIDMEALS [facility] Last Admin: 11/09/19 17:50 Dose: 15 units Lisinopril (Prinivil) 2.5 mg PO DAILY [facility] Last Admin: 11/10/19 09:21 Dose: 2.5 mg Magnesium Hydroxide (Milk Of Magnesia) 30 ml PO DAILY PRN PRN Reason: Constipation Last Admin: 11/10/19 06:24 Dose: 30 ml Metoprolol Tartrate (Lopressor) 12.5 mg PO BID [facility] Last Admin: 11/10/19 09:22 Dose: 12.5 mg Multivitamins (Thera) 1 each PO DAILY [facility] Last Admin: 11/10/19 09:21 Dose: 1 each Omeprazole (Omeprazole) 20 mg PO ACBREAKFAST [facility] Last Admin: 11/10/19 06:16 Dose: 20 mg Oxycodone/Acetaminophen (Percocet 325-5 Mg) 1 tab PO Q4H PRN PRN Reason: Pain (moderate 4-6) Polyethylene Glycol (Miralax) 17 gm PO DAILY [facility] Last Admin: 11/10/19 09:27 Dose: 17 gm Sodium Chloride (Saline Flush) 10 ml FLUSH ASDIRECTED PRN PRN Reason: Keep Vein Open Last Admin: 11/09/19 08:37 Dose: 10 ml Warfarin Sodium (Pharmacy To Dose - Warfarin) 1 dose PO ASDIRECTED [facility] Warfarin Sodium (Coumadin) 10 mg PO ONETIME ONE Stop: 11/10/19 14:01 Discontinued Medications Enoxaparin Sodium (Lovenox) 100 mg SUBCUT DAILY [facility] Last Admin: 11/05/19 15:29 Dose: Not Given Enoxaparin Sodium (Lovenox) 90 mg SUBCUT ONETIME ONE Stop: 11/05/19 15:46 Last Admin: 11/05/19 16:01 Dose: 90 mg Insulin Human Lispro (Humalog) 15 unit SUBCUT TIDMEALS [facility] Last Admin: 11/07/19 08:28 Dose: Not Given Non-Formulary Medication (Lovastatin [Lovastatin]) 40 mg PO BEDTIME [facility] Warfarin Sodium (Coumadin) 5 mg PO DAILY@1400 [facility] Last Admin: 11/05/19 15:29 Dose: Not Given Warfarin Sodium (Coumadin) 5 mg PO ONETIME ONE Stop: 11/05/19 15:01 Last Admin: 11/05/19 15:28 Dose: 5 mg Warfarin Sodium (Coumadin) 5 mg PO ONETIME ONE Stop: 11/06/19 14:01 Last Admin: 11/06/19 13:41 Dose: 5 mg Warfarin Sodium (Coumadin) 7.5 mg PO ONETIME ONE Stop: 11/07/19 14:01 Last Admin: 11/07/19 14:12 Dose: 7.5 mg Warfarin Sodium (Coumadin) 7.5 mg PO ONETIME ONE Stop: 11/08/19 14:01 Last Admin: 11/08/19 14:48 Dose: 7.5 mg Warfarin Sodium (Coumadin) 7.5 mg PO ONETIME ONE Stop: 11/09/19 14:01 Last Admin: 11/09/19 14:28 Dose: 7.5 mg - Exam Quality Assessment: DVT Prophylaxis. No: Supplemental Oxygen, Urine Catheter General: Alert, Oriented, Cooperative, No Acute Distress HEENT: Pupils Equal, Pupils Reactive, EOMI, Mucous Membr. Moist/[place] Neck: No JVD, No Thyromegaly. No: Thyromegaly Lungs: Clear to Auscultation, Normal Respiratory Effort Cardiovascular: Regular Rate, Regular Rhythm, Murmurs GI/Abdominal Exam: Normal Bowel Sounds, Soft, Non-Tender, No Organomegaly, No Distention (Male) Exam: Deferred Back Exam: Normal Inspection, Full Range of Motion Extremities: Normal Inspection, Pedal Edema Skin: Warm, Dry, Intact Neurological: No New Focal Deficit Psy/Mental Status: Alert, Normal Affect, Normal Mood Sepsis Event Note - Evaluation Sepsis Screening Result: No Definite Risk - Focused Exam Vital Signs: Vital Signs Temp Pulse Pulse Resp BP BP Pulse Ox 11/10/19 09:24 63 132/66 11/10/19 09:22 63 132/66 11/10/19 09:21 132/66 11/10/19 08:00 36.7 C 63 18 132/66 93 L Date Exam was Performed: 11/10/19 Time Exam was Performed: 10:37 - Problem List & Annotations (1) DVT (deep venous thrombosis) SNOMED Code(s): 448293774 Code(s): I82.409 - ACUTE EMBOLISM AND THOMBOS UNSP DEEP VN UNSP LOWER EXTREMITY Status: Acute Current Visit: Yes - Problem List Review Problem List Initiated/Reviewed/Updated: Yes - My Orders Last 24 Hours: My Active Orders 11/09/19 10:11 Magnesium Hydroxide [Milk of Magnesia] 30 ml PO DAILY PRN 11/10/19 14:00 Warfarin [Coumadin] 10 mg PO ONETIME ONE - Plan Plan:: This is a 74 y/O pleasant Male with past medical history of CAD S/P CABG about 5 weeks ago, Diabetes II, Hypertension GERD Dyslipidemia, CKD was admitted from [facility] [place] with Rt Leg swelling, work up showed Rt LE DVT 1. Right Leg DVT: He is on Lovenox and Coumadin -Pharmacy is dosing the Coumadin dose and it is not yet therapeutic -Will D/C once INR is on the therapeutic target 2. Diabetes II ( Insulin Dependent): Continue Lantus and sliding scale coverage. He is also on regular insulin before meals. His blood sugar is acceptable 3. Hypertension: BP is controlled, will continue Diltiazem at 300 mg daily and Metoprolol at 12.5 mg BID and Lisinopril at 2.5 mg daily 4. Rt LE wound ( graft harvest site) : He is on Doxycycline 5. GERD: Continue Protonix 6. Code Status: Full Code
[2019-11-10] MEDS ORDERED: Warfarin 5 MG Tab PO ONE (14:00)
[2019-11-10] MEDS ORDERED: Bisacodyl 10 MG Supp RECTAL PRN (14:27)
[2019-11-10] MEDS: Doxazosin 2 MG Tab PO SCH (21:37)
[2019-11-10] MEDS: atorvaSTATin 10 MG Tab PO SCH (21:41)
[2019-11-10] MEDS: Insulin Glarg,Human.Rec.Analog 100 Unit/ML SUBCUT SCH (21:43)
[2019-11-11] MEDS: Enoxaparin 100 MG/1 ML Syringe SUBCUT SCH ×2 (06:23→18:42)
[2019-11-11] MEDS: Omeprazole 20 MG Cap.CR PO SCH (06:23)
[2019-11-11] MEDS: Multivitamins,Therapeutic Tab PO SCH (09:12)
[2019-11-11] MEDS: Metoprolol Tartrate 25 MG Tab PO SCH ×2 (09:12→22:05)
[2019-11-11] MEDS: Diltiazem 180 MG Cap.CD PO SCH (09:12)
[2019-11-11] MEDS: Bumetanide 1 MG Tab PO SCH (09:13)
[2019-11-11] MEDS: Polyethylene Glycol 3350 Powder 17 GM Packet PO SCH (09:13)
[2019-11-11] MEDS: Lisinopril 5 MG Tab PO SCH (09:13)
[2019-11-11] MEDS: Doxycycline 100 MG Cap PO SCH ×2 (09:13→22:07)
[2019-11-11] MEDS: Insulin Lispro 100 Units/ML 3 ML Vial SUBCUT SCH ×2 (09:14→18:41)
[2019-11-11] MEDS: Aspirin 81 MG Tab.Chew PO SCH (09:14)
[2019-11-11] MEDS: Diltiazem 120 MG Cap.CD PO SCH (09:14)
--- NOTE | 2019-11-11 10:41 | PCM.PN ---
- General Info Date of Service: 11/11/19 Admission Dx/Problem (Free Text): Admitted with: DVT of the Right lower extremity Subjective Update: Pt was seen in room, doing well, feels better, no significant leg pain or swelling. Appetite is good, and had BM and he is little frustrated because his INR is taking time to get to Target Functional Status: Reports: Pain Controlled, Tolerating Diet, Ambulating, Urinating - Review of Systems General: Reports: Appetite (good). Denies: Fever, Weakness, Chills HEENT: Denies: Dysphasia, Headaches, Sinus Congestion, Sore Throat, Visual Changes Pulmonary: Denies: Shortness of Breath, Pleuritic Chest Pain, Cough, Sputum, Wheezing Cardiovascular: Denies: Chest Pain, Dyspnea on Exertion, Lightheadedness Gastrointestinal: Denies: Abdominal Pain, Difficulty Swallowing, Nausea, Vomiting Genitourinary: Denies: Dysuria, Frequency, Burning, Urgency, Flank Pain Musculoskeletal: Denies: Neck Pain, Shoulder Pain, Leg Pain, Joint Pain, Joint Swelling Skin: Denies: Cyanosis, Jaundice Neurological: Denies: Confusion, Numbness, Tingling, Tremors Psychiatric: Reports: No Symptoms - Patient Data Vitals - Most Recent: Last Vital Signs Temp 37.1 C 11/11/19 07:47 Pulse 57 L 11/11/19 09:14 Resp 20 11/11/19 07:47 BP 152/82 H 11/11/19 09:14 Pulse Ox 98 11/11/19 07:47 Weight - Most Recent: 89.721 kg I&O - Last 24 Hours: Intake & Output 11/10/19 11/11/19 11/11/19 22:59 06:59 14:59 Intake Total 1050 600 Balance 1050 600 Lab Results Last 24 Hours: Laboratory Results - last 24 hr 11/10/19 11/10/19 11/10/19 Range/Units 11:53 17:04 21:06 PT (9.0-12.0) SEC INR (0.9-1.2) POC Glucose 216 H 243 H 187 H (83-110) mg/dl 11/11/19 11/11/19 11/11/19 Range/Units 02:36 03:02 06:15 PT 15.0 H (9.0-12.0) SEC INR 1.5 H (0.9-1.2) POC Glucose 47 L* 93 (83-110) mg/dl 11/11/19 Range/Units 07:56 PT (9.0-12.0) SEC INR (0.9-1.2) POC Glucose 154 H (83-110) mg/dl Med Orders - Current: Current Medications Acetaminophen (Tylenol) 650 mg PO Q4H PRN PRN Reason: Pain (Mild 1-3)/fever Aspirin (Aspirin) 81 mg PO WITHBREAKFAST [facility] Last Admin: 11/11/19 09:14 Dose: 81 mg Atorvastatin Calcium (Lipitor) 10 mg PO BEDTIME [facility] Last Admin: 11/10/19 21:41 Dose: 10 mg Bisacodyl (Dulcolax) 10 mg RECTAL DAILY PRN PRN Reason: Constipation Last Admin: 11/10/19 14:41 Dose: 10 mg Bumetanide (Bumex) 1 mg PO DAILY [facility] Last Admin: 11/11/19 09:13 Dose: 1 mg Diltiazem HCl (Cardizem Cd) 120 mg PO DAILY [facility] Last Admin: 11/11/19 09:14 Dose: 120 mg Diltiazem HCl (Cardizem Cd) 180 mg PO DAILY [facility] Last Admin: 11/11/19 09:12 Dose: 180 mg Docusate Sodium (Colace) 100 mg PO BID PRN PRN Reason: Constipation Last Admin: 11/10/19 06:24 Dose: 100 mg Doxazosin Mesylate (Cardura) 2 mg PO BEDTIME [facility] Last Admin: 11/10/19 21:37 Dose: 2 mg Doxycycline Hyclate (Vibramycin) 100 mg PO BID [facility] Last Admin: 11/11/19 09:13 Dose: 100 mg Enoxaparin Sodium (Lovenox) 90 mg SUBCUT Q12H [facility] Last Admin: 11/11/19 06:23 Dose: 90 mg Insulin Glargine (Lantus) 30 unit SUBCUT BEDTIME [facility] Last Admin: 11/10/19 21:43 Dose: 30 units Insulin Human Lispro (Humalog) 15 unit SUBCUT BIDMEALS [facility] Last Admin: 11/11/19 09:14 Dose: 15 units Lisinopril (Prinivil) 2.5 mg PO DAILY [facility] Last Admin: 11/11/19 09:13 Dose: 2.5 mg Magnesium Hydroxide (Milk Of Magnesia) 30 ml PO DAILY PRN PRN Reason: Constipation Last Admin: 11/10/19 06:24 Dose: 30 ml Metoprolol Tartrate (Lopressor) 12.5 mg PO BID [facility] Last Admin: 11/11/19 09:12 Dose: 12.5 mg Multivitamins (Thera) 1 each PO DAILY [facility] Last Admin: 11/11/19 09:12 Dose: 1 each Omeprazole (Omeprazole) 20 mg PO ACBREAKFAST [facility] Last Admin: 11/11/19 06:23 Dose: 20 mg Oxycodone/Acetaminophen (Percocet 325-5 Mg) 1 tab PO Q4H PRN PRN Reason: Pain (moderate 4-6) Polyethylene Glycol (Miralax) 17 gm PO DAILY [facility] Last Admin: 11/11/19 09:13 Dose: 17 gm Sodium Chloride (Saline Flush) 10 ml FLUSH ASDIRECTED PRN PRN Reason: Keep Vein Open Last Admin: 11/09/19 08:37 Dose: 10 ml Warfarin Sodium (Pharmacy To Dose - Warfarin) 1 dose PO ASDIRECTED [facility] Discontinued Medications Enoxaparin Sodium (Lovenox) 100 mg SUBCUT DAILY [facility] Last Admin: 11/05/19 15:29 Dose: Not Given Enoxaparin Sodium (Lovenox) 90 mg SUBCUT ONETIME ONE Stop: 11/05/19 15:46 Last Admin: 11/05/19 16:01 Dose: 90 mg Insulin Human Lispro (Humalog) 15 unit SUBCUT TIDMEALS [facility] Last Admin: 11/07/19 08:28 Dose: Not Given Non-Formulary Medication (Lovastatin [Lovastatin]) 40 mg PO BEDTIME [facility] Warfarin Sodium (Coumadin) 5 mg PO DAILY@1400 [facility] Last Admin: 11/05/19 15:29 Dose: Not Given Warfarin Sodium (Coumadin) 5 mg PO ONETIME ONE Stop: 11/05/19 15:01 Last Admin: 11/05/19 15:28 Dose: 5 mg Warfarin Sodium (Coumadin) 5 mg PO ONETIME ONE Stop: 11/06/19 14:01 Last Admin: 11/06/19 13:41 Dose: 5 mg Warfarin Sodium (Coumadin) 7.5 mg PO ONETIME ONE Stop: 11/07/19 14:01 Last Admin: 11/07/19 14:12 Dose: 7.5 mg Warfarin Sodium (Coumadin) 7.5 mg PO ONETIME ONE Stop: 11/08/19 14:01 Last Admin: 11/08/19 14:48 Dose: 7.5 mg Warfarin Sodium (Coumadin) 7.5 mg PO ONETIME ONE Stop: 11/09/19 14:01 Last Admin: 11/09/19 14:28 Dose: 7.5 mg Warfarin Sodium (Coumadin) 10 mg PO ONETIME ONE Stop: 11/10/19 14:01 Last Admin: 11/10/19 14:40 Dose: 10 mg - Exam Quality Assessment: DVT Prophylaxis. No: Supplemental Oxygen, Central Line/PICC , Urine Catheter General: Alert, Oriented, Cooperative, No Acute Distress HEENT: Pupils Equal, EOMI, Mucous Membr. Moist/[place] Neck: No JVD, No Thyromegaly. No: Lymphadenopathy Lungs: Clear to Auscultation, Normal Respiratory Effort Cardiovascular: Regular Rate, Regular Rhythm, No Murmurs GI/Abdominal Exam: Normal Bowel Sounds, Non-Tender, No Organomegaly, No Distention. No: Rigid, Rebound, Tender (Male) Exam: Deferred Back Exam: Normal Inspection, Full Range of Motion Extremities: Normal Inspection, No Pedal Edema Skin: Warm, Intact Neurological: No New Focal Deficit Psy/Mental Status: Alert, Normal Affect, Normal Mood Sepsis Event Note - Evaluation Sepsis Screening Result: No Definite Risk - Focused Exam Vital Signs: Vital Signs Temp Pulse Pulse Resp BP BP Pulse Ox 11/11/19 09:14 57 L 152/82 H 11/11/19 09:13 152/82 H 11/11/19 09:12 57 L 152/82 H 11/11/19 07:47 37.1 C 57 L 20 152/82 H 98 11/10/19 23:13 36.6 C 54 L 20 154/74 H 95 Date Exam was Performed: 11/11/19 Time Exam was Performed: 10:37 - Problem List & Annotations (1) DVT (deep venous thrombosis) SNOMED Code(s): 761291008 Code(s): I82.409 - ACUTE EMBOLISM AND THOMBOS UNSP DEEP VN UNSP LOWER EXTREMITY Status: Acute Current Visit: Yes - Problem List Review Problem List Initiated/Reviewed/Updated: Yes - My Orders Last 24 Hours: My Active Orders 11/10/19 14:27 bisacodyL [Dulcolax] 10 mg RECTAL DAILY PRN - Plan Plan:: This is a 74 y/O pleasant Male with past medical history of CAD S/P CABG about 5 weeks ago, Diabetes II, Hypertension GERD Dyslipidemia, CKD was admitted from [facility] [place] with Rt Leg swelling, work up showed Rt LE DVT 1. Right Leg DVT: He is on Lovenox and Coumadin -Pharmacy is dosing the Coumadin dose and it is not yet therapeutic -Will discharge home once INR is on the therapeutic target, INR today was 1.5 2. Diabetes II ( Insulin Dependent): Continue Lantus and sliding scale coverage. He is also on regular insulin before meals. His blood sugar is acceptable 3. Hypertension: BP is controlled, will continue Diltiazem at 300 mg daily and Metoprolol at 12.5 mg BID and Lisinopril at 2.5 mg daily 4. Rt LE wound ( graft harvest site) : He is on Doxycycline 5. GERD: Continue Protonix 6. Code Status: Full Code
[2019-11-11] MEDS ORDERED: Warfarin 5 MG Tab PO ONE (14:00)
[2019-11-11] MEDS: Doxazosin 2 MG Tab PO SCH (22:03)
[2019-11-11] MEDS: Insulin Glarg,Human.Rec.Analog 100 Unit/ML SUBCUT SCH (22:04)
[2019-11-11] MEDS: atorvaSTATin 10 MG Tab PO SCH (22:05)
[2019-11-12] MEDS: Enoxaparin 100 MG/1 ML Syringe SUBCUT SCH ×2 (06:30→17:47)
[2019-11-12] MEDS: Omeprazole 20 MG Cap.CR PO SCH (06:31)
[2019-11-12] MEDS: Bumetanide 1 MG Tab PO SCH (08:46)
[2019-11-12] MEDS: Polyethylene Glycol 3350 Powder 17 GM Packet PO SCH (08:46)
[2019-11-12] MEDS: Metoprolol Tartrate 25 MG Tab PO SCH ×2 (08:47→20:21)
[2019-11-12] MEDS: Diltiazem 180 MG Cap.CD PO SCH (08:47)
[2019-11-12] MEDS: Doxycycline 100 MG Cap PO SCH ×2 (08:47→20:22)
[2019-11-12] MEDS: Lisinopril 5 MG Tab PO SCH (08:50)
[2019-11-12] MEDS: Aspirin 81 MG Tab.Chew PO SCH (08:50)
[2019-11-12] MEDS: Multivitamins,Therapeutic Tab PO SCH (08:51)
[2019-11-12] MEDS: Diltiazem 120 MG Cap.CD PO SCH (08:51)
[2019-11-12] MEDS: Insulin Lispro 100 Units/ML 3 ML Vial SUBCUT SCH ×2 (10:11→17:47)
--- NOTE | 2019-11-12 13:31 | PCM.PN ---
- General Info Date of Service: 11/12/19 Admission Dx/Problem (Free Text): Admitted with: DVT of the Right lower extremity Subjective Update: Pt was seen in room, doing well, feels better, no significant leg pain or swelling. Appetite is good, and had BM and he is little frustrated because his INR is taking time to get to Target Functional Status: Reports: Pain Controlled, Tolerating Diet, Ambulating, Urinating - Review of Systems General: Reports: Appetite (good). Denies: Fever, Weakness, Chills HEENT: Denies: Ear Pain, Headaches, Sinus Congestion, Sore Throat, Visual Changes Pulmonary: Denies: Shortness of Breath, Cough, Sputum, Wheezing Cardiovascular: Denies: Chest Pain, Dyspnea on Exertion, Edema, Lightheadedness Gastrointestinal: Reports: Constipation. Denies: Abdominal Pain, Nausea, Vomiting Genitourinary: Denies: Dysuria, Burning, Urgency, Flank Pain Musculoskeletal: Denies: Neck Pain, Shoulder Pain, Joint Pain Skin: Denies: Cyanosis, Jaundice, Diaphoresis, Dryness, Bruising, Pruritis Neurological: Denies: Confusion, Headache, Tingling, Tremors Psychiatric: Reports: No Symptoms - Patient Data Vitals - Most Recent: Last Vital Signs Temp 36.3 C 11/12/19 08:37 Pulse 60 11/12/19 08:51 Resp 20 11/12/19 08:37 BP 127/62 11/12/19 08:51 Pulse Ox 98 11/12/19 08:37 Weight - Most Recent: 88.961 kg I&O - Last 24 Hours: Intake & Output 11/11/19 11/12/19 11/12/19 22:59 06:59 14:59 Intake Total 550 Balance 550 Lab Results Last 24 Hours: Laboratory Results - last 24 hr 11/11/19 11/11/19 11/12/19 Range/Units 17:06 21:08 06:15 WBC (5.0-10.0) 10^3/uL RBC (4.6-6.2) 10^6/uL Hgb (14.0-18.0) g/dL Hct (40.0-54.0) % MCV (80-100) fL MCH (27.0-34.0) pg MCHC (33.0-35.0) g/dL Plt Count (150-450) 10^3/uL PT 17.5 H (9.0-12.0) SEC INR 1.8 H (0.9-1.2) Sodium (135-145) mmol/L Potassium (3.6-5.0) mmol/L Chloride (101-111) mmol/L Carbon Dioxide (21.0-31.0) mmol/L Anion Gap BUN (7-18) mg/dL Creatinine (0.6-1.3) mg/dL Est Cr Clr Drug Dosing mL/min Estimated GFR (MDRD) Glucose (74-105) mg/dL POC Glucose 251 H 213 H (83-110) mg/dl Calcium (8.4-10.2) mg/dl 11/12/19 11/12/19 11/12/19 Range/Units 06:15 06:15 07:49 WBC 5.4 (5.0-10.0) 10^3/uL RBC 3.74 L (4.6-6.2) 10^6/uL Hgb 11.7 L (14.0-18.0) g/dL Hct 35.3 L (40.0-54.0) % MCV 94.4 (80-100) fL MCH 31.3 (27.0-34.0) pg MCHC 33.1 (33.0-35.0) g/dL Plt Count 269 (150-450) 10^3/uL PT (9.0-12.0) SEC INR (0.9-1.2) Sodium 139 (135-145) mmol/L Potassium 4.0 (3.6-5.0) mmol/L Chloride 105 (101-111) mmol/L Carbon Dioxide 25.0 (21.0-31.0) mmol/L Anion Gap 13.0 BUN 21 H (7-18) mg/dL Creatinine 1.4 H (0.6-1.3) mg/dL Est Cr Clr Drug Dosing 44.11 mL/min Estimated GFR (MDRD) 49 Glucose 83 (74-105) mg/dL POC Glucose 76 L (83-110) mg/dl Calcium 8.6 (8.4-10.2) mg/dl 11/12/19 11/12/19 Range/Units 09:58 11:29 WBC (5.0-10.0) 10^3/uL RBC (4.6-6.2) 10^6/uL Hgb (14.0-18.0) g/dL Hct (40.0-54.0) % MCV (80-100) fL MCH (27.0-34.0) pg MCHC (33.0-35.0) g/dL Plt Count (150-450) 10^3/uL PT (9.0-12.0) SEC INR (0.9-1.2) Sodium (135-145) mmol/L Potassium (3.6-5.0) mmol/L Chloride (101-111) mmol/L Carbon Dioxide (21.0-31.0) mmol/L Anion Gap BUN (7-18) mg/dL Creatinine (0.6-1.3) mg/dL Est Cr Clr Drug Dosing mL/min Estimated GFR (MDRD) Glucose (74-105) mg/dL POC Glucose 210 H 210 H (83-110) mg/dl Calcium (8.4-10.2) mg/dl Med Orders - Current: Current Medications Acetaminophen (Tylenol) 650 mg PO Q4H PRN PRN Reason: Pain (Mild 1-3)/fever Aspirin (Aspirin) 81 mg PO WITHBREAKFAST [facility] Last Admin: 11/12/19 08:50 Dose: 81 mg Atorvastatin Calcium (Lipitor) 10 mg PO BEDTIME [facility] Last Admin: 11/11/19 22:05 Dose: 10 mg Bisacodyl (Dulcolax) 10 mg RECTAL DAILY PRN PRN Reason: Constipation Last Admin: 11/10/19 14:41 Dose: 10 mg Bumetanide (Bumex) 1 mg PO DAILY [facility] Last Admin: 11/12/19 08:46 Dose: 1 mg Diltiazem HCl (Cardizem Cd) 120 mg PO DAILY [facility] Last Admin: 11/12/19 08:51 Dose: 120 mg Diltiazem HCl (Cardizem Cd) 180 mg PO DAILY [facility] Last Admin: 11/12/19 08:47 Dose: 180 mg Docusate Sodium (Colace) 100 mg PO BID PRN PRN Reason: Constipation Last Admin: 11/10/19 06:24 Dose: 100 mg Doxazosin Mesylate (Cardura) 2 mg PO BEDTIME [facility] Last Admin: 11/11/19 22:03 Dose: 2 mg Doxycycline Hyclate (Vibramycin) 100 mg PO BID [facility] Last Admin: 11/12/19 08:47 Dose: 100 mg Enoxaparin Sodium (Lovenox) 90 mg SUBCUT Q12H [facility] Last Admin: 11/12/19 06:30 Dose: 90 mg Insulin Glargine (Lantus) 30 unit SUBCUT BEDTIME [facility] Last Admin: 11/11/19 22:04 Dose: 30 units Insulin Human Lispro (Humalog) 15 unit SUBCUT BIDMEALS [facility] Last Admin: 11/12/19 10:11 Dose: 15 units Lisinopril (Prinivil) 2.5 mg PO DAILY [facility] Last Admin: 11/12/19 08:50 Dose: 2.5 mg Magnesium Hydroxide (Milk Of Magnesia) 30 ml PO DAILY PRN PRN Reason: Constipation Last Admin: 11/10/19 06:24 Dose: 30 ml Metoprolol Tartrate (Lopressor) 12.5 mg PO BID [facility] Last Admin: 11/12/19 08:47 Dose: 12.5 mg Multivitamins (Thera) 1 each PO DAILY [facility] Last Admin: 11/12/19 08:51 Dose: 1 each Omeprazole (Omeprazole) 20 mg PO ACBREAKFAST [facility] Last Admin: 11/12/19 06:31 Dose: 20 mg Oxycodone/Acetaminophen (Percocet 325-5 Mg) 1 tab PO Q4H PRN PRN Reason: Pain (moderate 4-6) Polyethylene Glycol (Miralax) 17 gm PO DAILY [facility] Last Admin: 11/12/19 08:46 Dose: 17 gm Sodium Chloride (Saline Flush) 10 ml FLUSH ASDIRECTED PRN PRN Reason: Keep Vein Open Last Admin: 11/09/19 08:37 Dose: 10 ml Warfarin Sodium (Pharmacy To Dose - Warfarin) 1 dose PO ASDIRECTED [facility] Warfarin Sodium (Coumadin) 10 mg PO ONETIME ONE Stop: 11/12/19 14:01 Discontinued Medications Enoxaparin Sodium (Lovenox) 100 mg SUBCUT DAILY [facility] Last Admin: 11/05/19 15:29 Dose: Not Given Enoxaparin Sodium (Lovenox) 90 mg SUBCUT ONETIME ONE Stop: 11/05/19 15:46 Last Admin: 11/05/19 16:01 Dose: 90 mg Insulin Human Lispro (Humalog) 15 unit SUBCUT TIDMEALS [facility] Last Admin: 11/07/19 08:28 Dose: Not Given Non-Formulary Medication (Lovastatin [Lovastatin]) 40 mg PO BEDTIME [facility] Warfarin Sodium (Coumadin) 5 mg PO DAILY@1400 [facility] Last Admin: 11/05/19 15:29 Dose: Not Given Warfarin Sodium (Coumadin) 5 mg PO ONETIME ONE Stop: 11/05/19 15:01 Last Admin: 11/05/19 15:28 Dose: 5 mg Warfarin Sodium (Coumadin) 5 mg PO ONETIME ONE Stop: 11/06/19 14:01 Last Admin: 11/06/19 13:41 Dose: 5 mg Warfarin Sodium (Coumadin) 7.5 mg PO ONETIME ONE Stop: 11/07/19 14:01 Last Admin: 11/07/19 14:12 Dose: 7.5 mg Warfarin Sodium (Coumadin) 7.5 mg PO ONETIME ONE Stop: 11/08/19 14:01 Last Admin: 11/08/19 14:48 Dose: 7.5 mg Warfarin Sodium (Coumadin) 7.5 mg PO ONETIME ONE Stop: 11/09/19 14:01 Last Admin: 11/09/19 14:28 Dose: 7.5 mg Warfarin Sodium (Coumadin) 10 mg PO ONETIME ONE Stop: 11/10/19 14:01 Last Admin: 11/10/19 14:40 Dose: 10 mg Warfarin Sodium (Coumadin) 10 mg PO ONETIME ONE Stop: 11/11/19 14:01 Last Admin: 11/11/19 14:07 Dose: 10 mg - Exam Quality Assessment: DVT Prophylaxis. No: Supplemental Oxygen, Central Line/PICC , Urine Catheter General: Alert, Oriented, Cooperative, No Acute Distress HEENT: Pupils Equal, Pupils Reactive, EOMI, Mucous Membr. Moist/[place] Neck: No JVD, No Thyromegaly Lungs: Clear to Auscultation, Normal Respiratory Effort Cardiovascular: Regular Rate, Regular Rhythm, No Murmurs GI/Abdominal Exam: Normal Bowel Sounds, Soft, Non-Tender, No Organomegaly (Male) Exam: Deferred Back Exam: Normal Inspection Extremities: Normal Inspection, No Pedal Edema Skin: Warm, Dry, Intact Neurological: No New Focal Deficit Psy/Mental Status: Alert, Normal Affect, Normal Mood Sepsis Event Note - Evaluation Sepsis Screening Result: No Definite Risk - Focused Exam Vital Signs: Vital Signs Temp Pulse Pulse Resp BP BP Pulse Ox 11/12/19 08:51 60 127/62 11/12/19 08:50 127/62 11/12/19 08:47 60 127/62 11/12/19 08:37 36.3 C 53 L 20 127/62 98 Date Exam was Performed: 11/12/19 Time Exam was Performed: 13:29 - Problem List & Annotations (1) DVT (deep venous thrombosis) SNOMED Code(s): 733682562 Code(s): I82.409 - ACUTE EMBOLISM AND THOMBOS UNSP DEEP VN UNSP LOWER EXTREMITY Status: Acute Current Visit: Yes - Problem List Review Problem List Initiated/Reviewed/Updated: Yes - My Orders Last 24 Hours: My Active Orders 11/12/19 14:00 Warfarin [Coumadin] 10 mg PO ONETIME ONE - Plan Plan:: This is a 74 y/O pleasant Male with past medical history of CAD S/P CABG about 5 weeks ago, Diabetes II, Hypertension GERD Dyslipidemia, CKD was admitted from [facility] [place] with Rt Leg swelling, work up showed Rt LE DVT 1. Right Leg DVT: He is on Lovenox and Coumadin -Pharmacy is dosing the Coumadin dose and it is not yet therapeutic -Will discharge home once INR is on the therapeutic target, INR today was 1.8 and he will likely be going home tomorrow 2. Diabetes II ( Insulin Dependent): Continue Lantus and sliding scale coverage. He is also on regular insulin before meals. His blood sugar is acceptable 3. Hypertension: BP is controlled, will continue Diltiazem at 300 mg daily and Metoprolol at 12.5 mg BID and Lisinopril at 2.5 mg daily 4. Rt LE wound ( graft harvest site) : He is on Doxycycline 5. GERD: Continue Protonix 6. Code Status: Full Code
[2019-11-12] MEDS ORDERED: Warfarin 5 MG Tab PO ONE (14:00)
[2019-11-12] MEDS: Doxazosin 2 MG Tab PO SCH (20:22)
[2019-11-12] MEDS: atorvaSTATin 10 MG Tab PO SCH (20:23)
[2019-11-12] MEDS: Insulin Glarg,Human.Rec.Analog 100 Unit/ML SUBCUT SCH (21:07)
[2019-11-13] MEDS: Omeprazole 20 MG Cap.CR PO SCH (06:11)
[2019-11-13] MEDS: Enoxaparin 100 MG/1 ML Syringe SUBCUT SCH (06:12)
[2019-11-13 08:12] VITALS: BP 135/71; PULSE 68
[2019-11-13] MEDS: Diltiazem 180 MG Cap.CD PO SCH (08:52)
[2019-11-13] MEDS: Diltiazem 120 MG Cap.CD PO SCH (08:52)
[2019-11-13] MEDS: Metoprolol Tartrate 25 MG Tab PO SCH (08:53)
[2019-11-13] MEDS: Doxycycline 100 MG Cap PO SCH (08:53)
[2019-11-13] MEDS: Lisinopril 5 MG Tab PO SCH (08:54)
[2019-11-13] MEDS: Bumetanide 1 MG Tab PO SCH (08:54)
[2019-11-13] MEDS: Multivitamins,Therapeutic Tab PO SCH (08:54)
[2019-11-13] MEDS: Aspirin 81 MG Tab.Chew PO SCH (08:55)
[2019-11-13] MEDS: Polyethylene Glycol 3350 Powder 17 GM Packet PO SCH (08:58)
[2019-11-13] MEDS: Insulin Lispro 100 Units/ML 3 ML Vial SUBCUT SCH (09:01)
--- NOTE | 2019-11-13 09:03 | PCM.DCSUM1 ---
Discharge Summary - Hospital Course Free Text/Narrative:: This is a 74 y/O pleasant Male with past medical history of CAD S/P CABG about 5 weeks ago, Diabetes II, Hypertension GERD Dyslipidemia, CKD was admitted from [facility] at [place] with Rt Leg swelling, work up showed Rt LE DVT and now on Lovenox and Coumadin, Pharmacy was monitoring his coumadin and his INR is at 1.9 today ( 11/13/19) and he will be going home today. He will have follow up with Dr. Saldana and get his INR checkhed tomorrow at [facility]. - Discharge Data Discharge Date: 11/13/19 Discharge Disposition: Home, Self-Care 01 Condition: Good - Referral to Home Health Primary Care Physician: Etienne Saldana MD - Discharge Diagnosis/Problem(s) (1) DVT (deep venous thrombosis) SNOMED Code(s): 968070854 ICD Code: I82.409 - ACUTE EMBOLISM AND THOMBOS UNSP DEEP VN UNSP LOWER EXTREMITY Status: Acute Current Visit: Yes Qualifiers: DVT location: lower extremity - Patient Instructions Diet: Heart Healthy Diet Activity: As Tolerated Showering/Bathing: May Shower Notify Provider of: Fever, Increased Pain, Nausea and/or Vomiting Other/Special Instructions: This is a 74 y/O pleasant Male with past medical history of CAD S/P CABG about 5 weeks ago, Diabetes II, Hypertension GERD Dyslipidemia, CKD was admitted from [facility] [place] with Rt Leg swelling, work up showed Rt LE DVT and now on Lovenox and Coumadin, Pharmacy was monitoring his coumadin and his INR is at 1.9 today ( 11/13/19) and he will be going home today. He will have follow up with Dr. Saldana and get his INR checkhed tomorrow at [facility]. - Discharge Plan Home Medications: Home Meds Diltiazem HCl [Diltiazem 24Hr ER] 300 mg PO DAILY 08/05/16 [History] Doxazosin Mesylate 2 mg PO BEDTIME 08/05/16 [History] Insulin Detemir [Levemir Flextouch] 30 units SQ BEDTIME 08/05/16 [History] Lovastatin 40 mg PO BEDTIME 08/05/16 [History] Multivitamins [Tab-A-Nessa] 1 tab PO DAILY 08/05/16 [History] Omeprazole 20 mg PO DAILY 08/05/16 [History] metFORMIN HCl [Metformin HCl] 500 mg PO BID 08/05/16 [History] Aspirin 1 tab PO DAILY 08/08/16 [History] Acetaminophen 650 mg PO Q4HR PRN 10/22/19 [History] Insulin Aspart [NovoLOG] 15 units INJECT TIDMEALS 10/22/19 [History] Metoprolol Tartrate 12.5 mg PO BID 10/22/19 [History] Bumetanide [Bumex] 1 mg PO DAILY 11/05/19 [History] Lisinopril [Zestril] 2.5 mg PO DAILY 11/05/19 [History] Oxygen Therapy Mode: Room Air Patient Handouts: Bleeding Precautions When on Anticoagulant Therapy, Adult, Vitamin K Foods and Warfarin, What You Need to Know About Warfarin, Warfarin tablets, Doxycycline tablets or capsules, Prothrombin Time, International Normalized Ratio Test, Deep Vein Thrombosis - Discharge Summary/Plan Comment DC Time >30 min.: Yes Discharge Summary/Plan Comment: This is a 74 y/O pleasant Male with past medical history of CAD S/P CABG about 5 weeks ago, Diabetes II, Hypertension GERD Dyslipidemia, CKD was admitted from [facility] [place] with Rt Leg swelling, work up showed Rt LE DVT 1. Right Leg DVT: He is on Lovenox and Coumadin -Pharmacy is dosing the Coumadin dose and it is not yet therapeutic -Will discharge home once INR is on the therapeutic target, INR today was 1.9 and he will be going home today -He will have follow up with PMD tomorrow and will have his INR checked tomorrow 2. Diabetes II ( Insulin Dependent): Continue Lantus and sliding scale coverage. He is also on regular insulin before meals. His blood sugar is acceptable 3. Hypertension: BP is controlled, will continue Diltiazem at 300 mg daily and Metoprolol at 12.5 mg BID and Lisinopril at 2.5 mg daily 4. Rt LE wound ( graft harvest site) : He is on Doxycycline 100 mg BID and has completed 7 days course 5. GERD: Continue Protonix - General Info Admission Dx/Problem (Free Text: Admitted with: DVT of the Right lower extremity Subjective Update: Pt was seen in room doing well, slept well, No nausea or Vomiting, No fever or chill, No LE pain, appetite is good and he will be going home today Functional Status: Reports: Pain Controlled, Tolerating Diet, Ambulating, Urinating - Review of Systems General: Reports: Appetite (good). Denies: Fever, Weakness, Chills HEENT: Denies: Headaches, Sinus Congestion, Sore Throat, Visual Changes Pulmonary: Denies: Shortness of Breath, Pleuritic Chest Pain, Cough, Sputum, Wheezing Cardiovascular: Denies: Chest Pain, Dyspnea on Exertion, Edema, Lightheadedness Gastrointestinal: Denies: Abdominal Pain, Diarrhea, Nausea, Vomiting Genitourinary: Denies: Dysuria, Burning, Urgency, Flank Pain Musculoskeletal: Denies: Neck Pain, Leg Pain, Joint Pain Skin: Denies: Cyanosis, Jaundice, Bruising, Pruritis, Rash Neurological: Denies: Confusion, Numbness, Paresthesia, Tremors Psychiatric: Denies: Confusion, Anxiety - Patient Data Vitals - Most Recent: Last Vital Signs Temp 36.9 C 11/13/19 08:11 Pulse 68 11/13/19 08:11 Resp 20 11/13/19 08:11 BP 135/71 11/13/19 08:11 Pulse Ox 99 11/13/19 08:11 Weight - Most Recent: 89.086 kg I&O - Last 24 hours: Intake & Output 11/12/19 11/13/19 11/13/19 22:59 06:59 14:59 Intake Total 1500 Balance 1500 Lab Results - Last 24 hrs: Laboratory Results - last 24 hr 11/12/19 11/12/19 11/12/19 Range/Units 06:15 06:15 09:58 WBC 5.4 (5.0-10.0) 10^3/uL RBC 3.74 L (4.6-6.2) 10^6/uL Hgb 11.7 L (14.0-18.0) g/dL Hct 35.3 L (40.0-54.0) % MCV 94.4 (80-100) fL MCH 31.3 (27.0-34.0) pg MCHC 33.1 (33.0-35.0) g/dL Plt Count 269 (150-450) 10^3/uL PT (9.0-12.0) SEC INR (0.9-1.2) Sodium 139 (135-145) mmol/L Potassium 4.0 (3.6-5.0) mmol/L Chloride 105 (101-111) mmol/L Carbon Dioxide 25.0 (21.0-31.0) mmol/L Anion Gap 13.0 BUN 21 H (7-18) mg/dL Creatinine 1.4 H (0.6-1.3) mg/dL Est Cr Clr Drug Dosing 44.11 mL/min Estimated GFR (MDRD) 49 Glucose 83 (74-105) mg/dL POC Glucose 210 H (83-110) mg/dl Calcium 8.6 (8.4-10.2) mg/dl 11/12/19 11/12/19 11/12/19 Range/Units 11:29 16:52 21:00 WBC (5.0-10.0) 10^3/uL RBC (4.6-6.2) 10^6/uL Hgb (14.0-18.0) g/dL Hct (40.0-54.0) % MCV (80-100) fL MCH (27.0-34.0) pg MCHC (33.0-35.0) g/dL Plt Count (150-450) 10^3/uL PT (9.0-12.0) SEC INR (0.9-1.2) Sodium (135-145) mmol/L Potassium (3.6-5.0) mmol/L Chloride (101-111) mmol/L Carbon Dioxide (21.0-31.0) mmol/L Anion Gap BUN (7-18) mg/dL Creatinine (0.6-1.3) mg/dL Est Cr Clr Drug Dosing mL/min Estimated GFR (MDRD) Glucose (74-105) mg/dL POC Glucose 210 H 314 H 183 H (83-110) mg/dl Calcium (8.4-10.2) mg/dl 11/13/19 11/13/19 Range/Units 06:07 07:49 WBC (5.0-10.0) 10^3/uL RBC (4.6-6.2) 10^6/uL Hgb (14.0-18.0) g/dL Hct (40.0-54.0) % MCV (80-100) fL MCH (27.0-34.0) pg MCHC (33.0-35.0) g/dL Plt Count (150-450) 10^3/uL PT 18.6 H (9.0-12.0) SEC INR 1.9 H (0.9-1.2) Sodium (135-145) mmol/L Potassium (3.6-5.0) mmol/L Chloride (101-111) mmol/L Carbon Dioxide (21.0-31.0) mmol/L Anion Gap BUN (7-18) mg/dL Creatinine (0.6-1.3) mg/dL Est Cr Clr Drug Dosing mL/min Estimated GFR (MDRD) Glucose (74-105) mg/dL POC Glucose 70 L (83-110) mg/dl Calcium (8.4-10.2) mg/dl Med Orders - Current: Current Medications Acetaminophen (Tylenol) 650 mg PO Q4H PRN PRN Reason: Pain (Mild 1-3)/fever Aspirin (Aspirin) 81 mg PO WITHBREAKFAST [facility] Last Admin: 11/12/19 08:50 Dose: 81 mg Atorvastatin Calcium (Lipitor) 10 mg PO BEDTIME [facility] Last Admin: 11/12/19 20:23 Dose: 10 mg Bisacodyl (Dulcolax) 10 mg RECTAL DAILY PRN PRN Reason: Constipation Last Admin: 11/10/19 14:41 Dose: 10 mg Bumetanide (Bumex) 1 mg PO DAILY [facility] Last Admin: 11/12/19 08:46 Dose: 1 mg Diltiazem HCl (Cardizem Cd) 120 mg PO DAILY [facility] Last Admin: 11/12/19 08:51 Dose: 120 mg Diltiazem HCl (Cardizem Cd) 180 mg PO DAILY [facility] Last Admin: 11/12/19 08:47 Dose: 180 mg Docusate Sodium (Colace) 100 mg PO BID PRN PRN Reason: Constipation Last Admin: 11/10/19 06:24 Dose: 100 mg Doxazosin Mesylate (Cardura) 2 mg PO BEDTIME [facility] Last Admin: 11/12/19 20:22 Dose: 2 mg Doxycycline Hyclate (Vibramycin) 100 mg PO BID [facility] Last Admin: 11/12/19 20:22 Dose: 100 mg Enoxaparin Sodium (Lovenox) 90 mg SUBCUT Q12H [facility] Last Admin: 11/13/19 06:12 Dose: 90 mg Insulin Glargine (Lantus) 30 unit SUBCUT BEDTIME [facility] Last Admin: 11/12/19 21:07 Dose: 30 units Insulin Human Lispro (Humalog) 15 unit SUBCUT BIDMEALS [facility] Last Admin: 11/12/19 17:47 Dose: 15 units Lisinopril (Prinivil) 2.5 mg PO DAILY [facility] Last Admin: 11/12/19 08:50 Dose: 2.5 mg Magnesium Hydroxide (Milk Of Magnesia) 30 ml PO DAILY PRN PRN Reason: Constipation Last Admin: 11/10/19 06:24 Dose: 30 ml Metoprolol Tartrate (Lopressor) 12.5 mg PO BID [facility] Last Admin: 11/12/19 20:21 Dose: 12.5 mg Multivitamins (Thera) 1 each PO DAILY [facility] Last Admin: 11/12/19 08:51 Dose: 1 each Omeprazole (Omeprazole) 20 mg PO ACBREAKFAST [facility] Last Admin: 11/13/19 06:11 Dose: 20 mg Oxycodone/Acetaminophen (Percocet 325-5 Mg) 1 tab PO Q4H PRN PRN Reason: Pain (moderate 4-6) Polyethylene Glycol (Miralax) 17 gm PO DAILY [facility] Last Admin: 11/12/19 08:46 Dose: 17 gm Sodium Chloride (Saline Flush) 10 ml FLUSH ASDIRECTED PRN PRN Reason: Keep Vein Open Last Admin: 11/09/19 08:37 Dose: 10 ml Warfarin Sodium (Pharmacy To Dose - Warfarin) 1 dose PO ASDIRECTED [facility] Warfarin Sodium (Coumadin) 10 mg PO ONETIME ONE Stop: 11/13/19 14:01 Discontinued Medications Enoxaparin Sodium (Lovenox) 100 mg SUBCUT DAILY [facility] Last Admin: 11/05/19 15:29 Dose: Not Given Enoxaparin Sodium (Lovenox) 90 mg SUBCUT ONETIME ONE Stop: 11/05/19 15:46 Last Admin: 11/05/19 16:01 Dose: 90 mg Insulin Human Lispro (Humalog) 15 unit SUBCUT TIDMEALS [facility] Last Admin: 11/07/19 08:28 Dose: Not Given Non-Formulary Medication (Lovastatin [Lovastatin]) 40 mg PO BEDTIME [facility] Warfarin Sodium (Coumadin) 5 mg PO DAILY@1400 [facility] Last Admin: 11/05/19 15:29 Dose: Not Given Warfarin Sodium (Coumadin) 5 mg PO ONETIME ONE Stop: 11/05/19 15:01 Last Admin: 11/05/19 15:28 Dose: 5 mg Warfarin Sodium (Coumadin) 5 mg PO ONETIME ONE Stop: 11/06/19 14:01 Last Admin: 11/06/19 13:41 Dose: 5 mg Warfarin Sodium (Coumadin) 7.5 mg PO ONETIME ONE Stop: 11/07/19 14:01 Last Admin: 11/07/19 14:12 Dose: 7.5 mg Warfarin Sodium (Coumadin) 7.5 mg PO ONETIME ONE Stop: 11/08/19 14:01 Last Admin: 11/08/19 14:48 Dose: 7.5 mg Warfarin Sodium (Coumadin) 7.5 mg PO ONETIME ONE Stop: 11/09/19 14:01 Last Admin: 11/09/19 14:28 Dose: 7.5 mg Warfarin Sodium (Coumadin) 10 mg PO ONETIME ONE Stop: 11/10/19 14:01 Last Admin: 11/10/19 14:40 Dose: 10 mg Warfarin Sodium (Coumadin) 10 mg PO ONETIME ONE Stop: 11/11/19 14:01 Last Admin: 11/11/19 14:07 Dose: 10 mg Warfarin Sodium (Coumadin) 10 mg PO ONETIME ONE Stop: 11/12/19 14:01 Last Admin: 11/12/19 13:40 Dose: 10 mg - Exam Quality Assessment: Reports: Central Line/PICC, DVT Prophylaxis. Denies: Supplemental Oxygen, Urine Catheter General: Reports: Alert, Oriented, Cooperative, No Acute Distress HEENT: Reports: Pupils Equal, Pupils Reactive, EOMI, Mucous Membr. Moist/[place] Neck: Reports: No JVD, No Thyromegaly. Denies: Lymphadenopathy Lungs: Reports: Clear to Auscultation, Normal Respiratory Effort. Denies: Crackles, Wheezing Cardiovascular: Reports: Regular Rate, Regular Rhythm, Murmurs GI/Abdominal Exam: Normal Bowel Sounds, Soft, No Distention. No: Rigid, Rebound , Tender (Male) Exam: Deferred Rectal (Males) Exam: Deferred Back Exam: Reports: Normal Inspection, Full Range of Motion Extremities: Normal Inspection, No Pedal Edema Skin: Reports: Warm, Dry, Intact Neurological: Reports: No New Focal Deficit Psy/Mental Status: Reports: Alert, Normal Affect, Normal Mood
[2019-11-13] MEDS ORDERED: Warfarin 5 MG Tab PO ONE ×2 (11:00→14:00)
== END 2019-11-13 11:15 | disposition home or self-care (01) | DRG 315 ==
LOC: DL.MS 12:31 → UNDOADMIN 12:31 → DL.MS 13:14
PROVIDERS: ADMIT Internal Medicine; ATTEND Internal Medicine Nephrology
DX: I97.89 Other postprocedural complications and disorders of the circulatory system, not elsewhere classified (principal); I82.411 Acute embolism and thrombosis of right femoral vein; I82.431 Acute embolism and thrombosis of right popliteal vein; I25.10 Atherosclerotic heart disease of native coronary artery without angina pectoris; N40.0 Benign prostatic hyperplasia without lower urinary tract symptoms; I12.9 Hypertensive chronic kidney disease with stage 1 through stage 4 chronic kidney disease, or unspecified chronic kidney disease; E11.22 Type 2 diabetes mellitus with diabetic chronic kidney disease; N18.9 Chronic kidney disease, unspecified; E78.5 Hyperlipidemia, unspecified; K21.9 Gastro-esophageal reflux disease without esophagitis; Z95.1 Presence of aortocoronary bypass graft; Z79.4 Long term (current) use of insulin; Z79.899 Other long term (current) drug therapy; Y83.8 Other surgical procedures as the cause of abnormal reaction of the patient, or of later complication, without mention of misadventure at the time of the procedure; Y84.0 Cardiac catheterization as the cause of abnormal reaction of the patient, or of later complication, without mention of misadventure at the time of the procedure
CPT/HCPCS: 36415; 80048; 82962; 85025; 85027; 85610; A9270-GY; J1650; J1815-GY